=== PATIENT | male | born 1965 | race African-American/Black ===

== ENCOUNTER 2018-05-05 09:56 | Outpatient (CLI) | payer MEDICARE ==
--- NOTE | 2018-05-05 10:24 | RAD ---
LUMBOSACRAL SPINE THREE VIEWS: HISTORY: Low back pain. COMPARISON: None. FINDINGS: Three views of the lumbosacral spine show normal height and alignment of the vertebral bodies without fracture or subluxation. Small osteophytes are seen throughout the lumbar spine. IMPRESSION: Mild degenerative changes of the lumbar spine without acute osseous abnormality. POS: C
== END 2018-05-05 09:57 | disposition home or self-care (01) ==
LOC: RAD-FRANK 09:56
PROVIDERS: ATTEND Nurse Practitioner Family
DX: M54.5 Low back pain (principal); M47.816 Spondylosis without myelopathy or radiculopathy, lumbar region
CPT/HCPCS: 72100

== ENCOUNTER 2018-05-08 12:29 | Day surgery (SDC) | payer MEDICARE ==
[2018-05-07 12:11] VITALS: BMI 33.0
[2018-05-08] MEDS ORDERED: Fentanyl 100 MCG/2 ML VIAL ONE (13:37)
--- NOTE | 2018-05-08 14:58 | MRI ---
NONCONTRAST MRI LUMBAR SPINE: DATE: 05/08/2018. HISTORY: Post laminectomy syndrome, lumbar region. FINDINGS: Visualized retroperitoneal structures demonstrate a normal nonenhanced MRI appearance. There is mild left convex curvature of the lumbar spine. Osteophytes are present anteriorly. The conus medullaris terminates at the T12-L1 level. T12-L1 level: There is no disk bulge or disk herniation. Mild facet degenerative changes are noted. The central spinal canal and neural foramen are patent. L1-2 level: There is no significant disk bulge or disk herniation. The central spinal canal and hung ral foramina are patent. L2-3 level. There is a Schmorl's node in the inferior end plate of the L2 vertebral body. There is a mild disk-osteophyte complex and facet hypertrophic changes. There is very slight effacement of th e ventral aspect of the thecal sac with prominence of epidural fat posterior to the thecal sac. Ther e is slight effacement of the ventral aspect of the thecal sac with mild bilateral neural foraminal n arrowing present. Mild facet hypertrophic changes are seen. L3-4 level: There is a broad-based disk-osteophyte complex. Facet hypertrophic changes and mild lig amentous thickening are noted. There is prominence of the epidural fat seen posterior to the thecal sac. There is mild narrowing of the central spinal canal with moderate bilateral neural foraminal na rrowing. L4-5 level: There is a broad-based disk-osteophyte complex and facet hypertrophic changes. Laminoto my defect is seen on the left. A broad-based disk-osteophyte complex is noted in addition to facet h ypertrophic changes. Mild fluid signal intensity seen within the facet joints. There is severe righ t and moderate to severe left-sided neural foraminal narrowing. A subcentimeter focus of increased T 2 weighted signal intensity is seen adjacent to the right-sided facet joints likely related to small synovial cyst. L5-S1 level: There is a broad-based disk-osteophyte complex with small annular tear at the posterior margin of the intervertebral disk. Small central disk protrusion is present. The disk bulge and ce ntral disk protrusion encroach on the traversing bilateral S1 nerve roots without significant mass ef fect on the nerve roots. There is no significant narrowing of the central spinal canal. Facet hyper trophic changes are seen bilaterally. There is mild bilateral neural foraminal narrowing present. IMPRESSION: Multilevel degenerative changes in the lumbar spine with findings greatest at the L3-4 and L4-5 level s. There is moderate to severe left and severe right-sided neural foraminal narrowing at the L4-5 le citlalli. POS: SID
[2018-05-08] MEDS ORDERED: Lidocaine 1% PF 5 ML VIAL ONE (16:25)
[2018-05-08] MEDS ORDERED: Ondansetron PF 4 MG/2 ML Vial ONE (16:25)
[2018-05-08] MEDS ORDERED: PROPOFOL 200 MG/20 ML VIAL ONE (16:25)
== END 2018-05-08 15:28 | disposition home or self-care (01) ==
LOC: SDC/OP 12:29
DX: M96.1 Postlaminectomy syndrome, not elsewhere classified (principal); M51.46 Schmorl's nodes, lumbar region; M48.061 Spinal stenosis, lumbar region without neurogenic claudication; I10 Essential (primary) hypertension; Z79.82 Long term (current) use of aspirin; Z79.899 Other long term (current) drug therapy; Z98.890 Other specified postprocedural states
CPT/HCPCS: 72148; J2001; J2405; J2704; J3010

== ENCOUNTER 2018-10-19 12:25 | Emergency (ER) | payer MEDICARE ==
--- NOTE | 2018-10-19 13:33 | ULT ---
Venous duplex sonogram right lower extremity HISTORY: Right leg pain and edema. FINDINGS: The right common femoral vein and greater saphenous junction were evaluated along with the femoral, deep femoral, popliteal, and posterior tibial veins. There is good color and spectral Doppler and augmentation. IMPRESSION: No sonographic evidence of DVT within the right lower extremity.
== END 2018-10-19 14:30 | disposition home or self-care (01) ==
LOC: ERS 12:25
DX: M79.661 Pain in right lower leg (principal); I10 Essential (primary) hypertension; Z79.899 Other long term (current) drug therapy; Z79.82 Long term (current) use of aspirin

== ENCOUNTER 2021-03-06 09:42 | Outpatient (CLI) | payer MEDICARE | END 2021-03-06 09:43 | disposition home or self-care (01) | LOC: BICRAD 09:42 | PROVIDERS: ATTEND Physical Medicine & Rehabilitation Pain Medicine | DX: G89.4 Chronic pain syndrome (principal); M25.551 Pain in right hip; M25.552 Pain in left hip; M47.816 Spondylosis without myelopathy or radiculopathy, lumbar region | CPT/HCPCS: 72110; 72170 ==

== ENCOUNTER 2021-08-13 09:53 | Outpatient (CLI) | payer MEDICARE ==
[2021-08-13 20:11] LABS: SARS-CoV-2 PCR by NAA Not Detected (NotDetected)
== END 2021-08-13 09:54 | disposition home or self-care (01) ==
LOC: LABBT 09:53
PROVIDERS: ATTEND Physical Medicine & Rehabilitation Pain Medicine
DX: Z20.822 Contact with and (suspected) exposure to COVID-19 (principal)
CPT/HCPCS: U0003; U0005

== ENCOUNTER 2021-08-17 09:52 | Outpatient (CLI) | payer MEDICARE ==
[2021-08-15 15:34] VITALS: BMI 34.3
[2021-08-17] MEDS ORDERED: fentaNYL Citrate/PF 100 MCG/2 ML SYRINGE ONE (11:48)
[2021-08-17] MEDS ORDERED: Midazolam HCl 2 mg/2 ml Vial ONE (11:48)
[2021-08-17] MEDS ORDERED: Dexmedetomidine 200 MCG/2 ML VIAL ONE (11:49)
== END 2021-08-17 14:30 | disposition home or self-care (01) ==
LOC: MRI 09:52
PROVIDERS: ATTEND Physical Medicine & Rehabilitation Pain Medicine
DX: G89.4 Chronic pain syndrome (principal); M51.24 Other intervertebral disc displacement, thoracic region; M51.36 Other intervertebral disc degeneration, lumbar region
CPT/HCPCS: 72146; 72148; J2250